=== PATIENT | female | born 1950 | race Caucasian/White ===

== ENCOUNTER 2024-06-09 10:08 | Emergency (ER) | payer MEDICARE, OTHER, SELFPAY ==
--- NOTE | ~2024-06-09 | US_ITS ---
EXAMINATION: US TRIPLEX LOWER EXTREMITY, BILATERAL CLINICAL INFORMATION: Swelling COMPARISON: None available. TECHNIQUE: Color-flow triplex imaging with spectral analysis and compression Doppler were performed on the bilateral lower extremities. FINDINGS: Respiratory variation, normal compression and augmented flow are noted throughout the bilateral lower extremities. The visualized common femoral vein, superficial femoral vein, profunda femoral vein, popliteal vein and midcalf peroneal and posterior tibial venous segments show no evidence of deep venous thrombosis bilaterally. There is no Fitzgerald's cyst. US/US venous duplex LE BI IMPRESSION: No evidence of deep venous thrombosis involving the bilateral lower extremities. Electronically signed by: Denzel Ly MD 06/09/2024 02:50 PM EDT RP
--- NOTE | ~2024-06-09 | XR_ITS ---
EXAMINATION: XR CHEST 2 VIEW CLINICAL INFORMATION: Chest pain and shortness of breath COMPARISON: None TECHNIQUE: PA and lateral views of the chest obtained. FINDINGS: The lungs are clear. There are no pleural effusions. The cardiomediastinal silhouette is normal. XR/XR chest 2V IMPRESSION: No acute cardiopulmonary disease. Electronically signed by: Valentin Simmons MD 06/09/2024 11:14 AM EDT
--- NOTE | 2024-06-09 10:09 | ECG_ITS ---
Test Reason : CHEST PAIN Blood Pressure : / mmHG Vent. Rate : 081 BPM Atrial Rate : 081 BPM P-R Int : 180 ms QRS Dur : 062 ms QT Int : 366 ms P-R-T Axes : 101 084 039 degrees QTc Int : 425 ms Normal sinus rhythm Low voltage QRS Borderline ECG No previous ECGs available Referred By: Generic ED Physician Electronically Signed By:Jesus Lindsey
[2024-06-09 10:19] VITALS: BP 113/58; PULSE 85; RESP 18; TEMP 36.1; O2SAT 97; BMI 28.6
[2024-06-09 10:51] LABS: MANUAL DIFF FLAG NO
[2024-06-09 10:54] LABS: Basophils Absolute Auto 0.1 X10*3/uL (0.0-0.2); Basophils Percent Auto 0.4 % (0-2); Eosinophils Absolute Auto 0.1 X10*3/uL (0.0-0.4); Eosinophils Percent Auto 0.9 % (0-4); Hematocrit 38.2 % (37.0-47.0); Hemoglobin 13.3 g/dl (12.0-16.0); Imm Gran Abs Auto 0.04 X10*3/uL (0.00-0.03); Imm Gran Pct Auto 0.4 % (0.0-0.4); Lymphocytes Absolute Auto 1.9 X10*3/uL (1.2-4.9); Lymphocytes Percent Auto 16.5 % (20-40); Mean Corpuscular HGB Conc 34.8 g/dl (31.0-35.0); Mean Corpuscular Hemoglobin 31.1 pg (27.0-33.0); Mean Corpuscular Volume 89.5 fL (80.0-98.0); Mean Platelet Volume 9.8 fL (9.4-12.3); Monocytes Absolute Auto 0.7 X10*3/uL (0.1-1.2); Neutrophils Absolute Auto 8.6 x10*3/uL (2.0-8.3); Neutrophils Percent Auto 75.8 % (45-73); Platelet Count 240 X10*3/uL (160-400); Red Blood Count 4.27 X10*6/uL (4.20-5.50); Red Cell Distribution Width 13.2 % (11.0-16.0); White Blood Count 11.4 X10*3/uL (4.8-10.8)
[2024-06-09 11:12] LABS: Alanine Aminotransferase 23 U/L (0-31); Albumin Level 4.6 g/dL (3.5-5.0); Alkaline Phosphatase 61 U/L (39-117); Anion Gap 10 (12-20); Aspartate Amino Transferase 25 U/L (5-31); Bilirubin Total 0.6 mg/dL (0.0-1.0); Blood Urea Nitrogen 26 mg/dL (9-16); Calcium 10.2 mg/dL (8.4-10.2); Carbon Dioxide 26 mmol/L (22-29); Chloride 105 mmol/L (96-108); Creatinine Clr Calc Pharmacy 59.8; Estimated Glomerular Filt Rate > 60; Glucose Random 123 mg/dL (60-115); Potassium 3.9 mmol/L (3.3-5.1); Sodium 137 mmol/L (135-145); Total Protein 7.1 g/dL (6.5-8.0)
[2024-06-09 11:17] LABS: B Type Natriuretic Peptide 29 pg/mL (<100)
[2024-06-09 11:22] LABS: Troponin-I High Sensitivity < 2.7 ng/L (<3.5-17.0)
[2024-06-09 11:24] VITALS: BP 109/41; PULSE 74; RESP 24; TEMP 36.6; O2SAT 97
--- NOTE | 2024-06-09 11:28 | PC.NURSE ---
a&ox4. vss an dup to date. nsr on the monitoring and evaluation advisor. pt presents to the ED for not feeling well x 1 week. pt reports increased sob w/o relief from nebulizer @ home for the past 3 days. hx of CHF/COPD. pt also reports increased salt intake/increase in LE swelling (left worse than the right). 1+ pitting edema noted in left. 20gIV placed in the right AC. sob noted. pt positioned upright to promote patent airway. respirations even/slightly labored. on SPO2 97% on RA. lungs CTA. labs/ekg/xray completed in triage. plan of care ongoing. call valladares placed within reach.
[2024-06-09 11:46] VITALS: PULSE 78; RESP 18; O2SAT 99
[2024-06-09] MEDS: Albuterol Sulfate 2.5 MG, Albuterol/Iprat 2.5/0.5MG 3 ML 3 ML INHALE (11:46)
[2024-06-09] MEDS: methylPREDNISolone Sod Succ 125 MG/2 ML VIAL IVPUSH (11:55)
--- NOTE | 2024-06-09 11:55 | PC.NURSE ---
medication administered per provider order. pt receiving breathing treatment via RT at this time.
[2024-06-09 12:12] VITALS: BP 118/55; PULSE 90; RESP 18; TEMP 36.4; O2SAT 95
--- NOTE | 2024-06-09 13:14 | ED_ITS ---
HPI - SOB/Dyspnea General Chief Complaint: Dyspnea Stated Complaint: Chest pain, leg swelling Time Seen by Provider: 06/09/24 11:31 Source: patient Mode of arrival: ambulatory Limitations: no limitations History of Present Illness HPI Narrative: This is a 73 years old patient with history of COPD presented to the emergency department complaining of cough congestion shortness of breath. She states also she has history of congestive of heart also she is complaining of leg swelling left more than right MD elicited complaint: shortness of breath and cough Pertinent past history: COPD Onset (ago): day(s) (1) Timing: constant Severity: moderate Exacerbating factors: nothing Relieving factors: nothing Known history of: COPD Related Data Previous Rx's ?Medication ?Instructions ?Recorded doxycycline monohydrate 100 mg 100 mg PO BID #14 caps 06/09/24 capsule (Monodox) prednisone 20 mg tablet 60 mg (3 x 20 mg) PO DAILY #12 tabs 06/09/24 Allergies Allergy/AdvReac Type Severity Reaction Status Date / Time nitrofurantoin Allergy Unknown Verified 06/09/24 10:24 [From Macrodantin] Penicillins Allergy Unknown Verified 06/09/24 10:24 Sulfa (Sulfonamide Allergy Unknown Verified 06/09/24 10:24 Antibiotics) Review of Systems 2 Constitutional: Constitutional: Reports no additional constitutional complaints Respiratory: Respiratory: Reports cough Musculoskeletal: Musculoskeletal: Reports no additional musculoskeletal complaints Hematologic/Lymphatic: Hematologic/Lymphatic: Reports no additional hematologic/lymphatic complaints PMFSH Past Medical History PMFSH Narrative: COPD, CHF Social History Social History Smoked in Last 30 Days: No Use of substances other than those prescribed or required for medical reasons: No Advance Directives: No Advance Directives Information Provided: Yes Do you have a plan to hurt others: No Plan Physical Exam 2 Vital Signs: Vital Signs: Last Vital Signs Temp 97.9 F 06/09/24 14:25 Pulse 98 06/09/24 14:25 Resp 16 06/09/24 14:25 BP 103/57 L 06/09/24 14:25 Pulse Ox 95 06/09/24 14:25 O2 Del Method Room Air 06/09/24 14:25 BMI result Body Mass Index 28.6 Awake alert no acute distress Const: General: cooperative Nutritional Appearance: well nourished O rientation/consciousness: patient oriented x3 Limitations: no limitations HEENT: Head: Yes normal to inspection General nose exam: Normal external nose present Mouth: Normal oral and palatal mucosa present Neck: Neck: Yes normal visual inspection Chest: Chest palpation & inspection: normal inspection of the chest Resp: Effort & Inspection: Actively coughing Auscultation: rhonchi Cardio: Jugular venous distension: no JVD Rate: regular rate Rhythm: r egular rhythm GI: Inspection: Yes normal to inspection Palpation (GI): Soft to palpation, not firm and nontender Skin: General skin exam: no rashes or lesions noted Lesions: no lesions Neuro: General: patient oriented x3 Extrem: Other: Mild leg swelling Course Reevaluation(s) Reevaluation #1: Chest x-ray no acute disease ultrasound was negative for DVT I think at this point the patient can be safely discharged home we will treat as COPD exacerbation she is comfortable with the plan of care Time: 15:02 Medications Administered Discontinued Medications Generic Name Dose Route Start Last Admin Trade Name Freq PRN Reason Stop Dose Admin Albuterol Sulfate 2.5 mg/ 0 mg 06/09/24 11:45 06/09/24 11:46 Albuterol/Ipratropium 3 ml INHALE 06/09/24 11:46 1 dose ONCE ONE Administration Methylprednisolone Sodium Succinate 125 mg 06/09/24 11:34 06/09/24 11:55 Methylprednisolone Sod Succ 125 Mg/2 Ml Vial IVPUSH 06/09/24 11:35 125 mg ONCE ONE Administration Medical Decision Making Medical Decision Making [facility] Narrative: Patient presented with shortness of breath will get chest x-ray labs electrocardiogram and reassessed Differential Diagnosis Differential Diagnoses: The differential diagnosis associated with the presentation includes Pneumonia /COPD exacerbation/ CHF Lab Data [facility] Lab Attestation statement: I reviewed the patient's lab results. 06/09/24 10:41 06/09/24 10:41 Labs: Lab Results 06/09/24 Range/Units 10:41 WBC 11.4 H (4.8-10.8) X10*3/uL RBC 4.27 (4.20-5.50) X10*6/uL Hgb 13.3 (12.0-16.0) g/dl Hct 38.2 (37.0-47.0) % MCV 89.5 (80.0-98.0) fL MCH 31.1 (27.0-33.0) pg MCHC 34.8 (31.0-35.0) g/dl RDW 13.2 (11.0-16.0) % Plt Count 240 (160-400) X10*3/uL MPV 9.8 (9.4-12.3) fL Immature Gran % (Auto) 0.4 (0.0-0.4) % Neut % (Auto) 75.8 H (45-73) % Lymph % (Auto) 16.5 L (20-40) % [place] % (Auto) 6.0 (2-11) % Eos % (Auto) 0.9 (0-4) % Baso % (Auto) 0.4 (0-2) % Lymph # (Auto) 1.9 (1.2-4.9) X10*3/uL [place] # (Auto) 0.7 (0.1-1.2) X10*3/uL Eos # (Auto) 0.1 (0.0-0.4) X10*3/uL Baso # (Auto) 0.1 (0.0-0.2) X10*3/uL Abs Immat Gran (auto) 0.04 H (0.00-0.03) X10*3/uL Absolute Neuts (auto) 8.6 H (2.0-8.3) x10*3/uL Absolute Nucleated RBC 0.000 (0.0-0.012) X10*3/uL Nucleated RBC % (auto) 0.0 (0.0-0.2) /100WBC Sodium 137 (135-145) mmol/L Potassium 3.9 (3.3-5.1) mmol/L Chloride 105 (96-108) mmol/L Carbon Dioxide 26 (22-29) mmol/L Anion Gap 10 L (12-20) BUN 26 H (9-16) mg/dL Creatinine 0.89 (0.5-1.4) mg/dL Estim Creat Clear Calc 59.8 Estimated GFR > 60 Random Glucose 123 H (60-115) mg/dL Calcium 10.2 (8.4-10.2) mg/dL Total Bilirubin 0.6 (0.0-1.0) mg/dL AST 25 (5-31) U/L ALT 23 (0-31) U/L Alkaline Phosphatase 61 (39-117) U/L Troponin I High Sens < 2.7 (<3.5-17.0) ng/L B-Natriuretic Peptide 29 (<100) pg/mL Total Protein 7.1 (6.5-8.0) g/dL Albumin 4.6 (3.5-5.0) g/dL Independent Interpretation I performed an independent interpretation of an: Plain X-Ray Interpretation: Chest x-ray interpreted by me no acute disease, electrocardiogram reviewed interpreted by me as sinus rhythm rate [address]-T changes Radiology Impression Discussion of test interpretation with radiology: I have reviewed the radiologist's reading. Independent Historian Clinical information obtained from an independent historian. History obtained from or confirmed by: Spouse Discharge Plan Discharge Clinical Impression: Acute exacerbation of chronic obstructive airways disease Patient Disposition: Still a Patient Instructions: COPD (Chronic Obstructive Pulmonary Disease) (DC) Prescriptions: New prednisone 20 mg tablet 60 mg PO DAILY Qty: 12 0RF doxycycline monohydrate [Monodox] 100 mg capsule 100 mg PO BID Qty: 14 0RF Print Language: Bengali
--- NOTE | 2024-06-09 14:00 | PC.NURSE ---
ultrasound being completed at this time. pt remains in no respiratory distress. no sob/wob noted. respirations remain even/unlabored. vss and up to date. nsr on the sampler tester. plan of care ongoing.
[2024-06-09 14:25] VITALS: BP 103/57; PULSE 98; RESP 16; TEMP 36.6; O2SAT 95
[2024-06-09 15:26] VITALS: BP 103/57; PULSE 98; RESP 16; TEMP 36.6; O2SAT 95
== END 2024-06-09 15:27 | disposition home or self-care (01) ==
PROVIDERS: Emergency Provider Emergency Medicine
DX: J44.1 Chronic obstructive pulmonary disease with (acute) exacerbation (principal); R06.00 Dyspnea, unspecified; R60.0 Localized edema; R07.89 Other chest pain; R06.02 Shortness of breath; Z79.899 Other long term (current) drug therapy
CPT/HCPCS: 36415; 71046; 80053; 83880; 84484; 85025; 93005; 93970; 94640; 96374; 99284; 99285; J2919

== ENCOUNTER → 2024-06-09 10:09 | Outpatient (BNV) | payer MEDICARE, OTHER, SELFPAY | PROVIDERS: Emergency Provider Emergency Medicine; Visit Provider Internal Medicine Cardiovascular Disease | DX: R07.9 Chest pain, unspecified (principal); R94.31 Abnormal electrocardiogram [ECG] [EKG] | CPT/HCPCS: 93010 ==